=== PATIENT | female | born 1965 | race Caucasian/White ===

== ENCOUNTER 2017-03-09 11:22 | Observation (INO) | payer SELFPAY ==
[~2017-03-09] VITALS: Ht 157.5 cm; Wt 83.0 kg
[~2017-03-09 11:22] MED LIST: AMOXICILLIN500 MG OR
[2017-03-09] MEDS ORDERED: GABAPENTIN400 M2 PO (11:56)
[2017-03-09] MEDS ORDERED: PROMETHAZINE12.5 MG PO (11:58)
[2017-03-09] MEDS ORDERED: DICYCLOMINE20 MG PO (11:59)
[2017-03-09] MEDS ORDERED: SEROQUEL400 M1 (12:00)
[2017-03-09] MEDS ORDERED: BUSPAR30 MG PO (12:00)
[2017-03-09] MEDS ORDERED: PRILOSEC20 MG PO (12:01)
[2017-03-09] MEDS ORDERED: CYMBALTA60 MG PO (12:01)
[2017-03-09] MEDS ORDERED: VISTARIL 50MG C50 M1 PO (12:02)
[2017-03-09] MEDS ORDERED: RANITIDINE300 M1 PO (12:02)
[2017-03-09] MEDS ORDERED: PRAVASTATIN20 MG PO (12:03)
[2017-03-09] MEDS ORDERED: INDERAL10 M1 PO (12:04)
[2017-03-09 12:25] LABS: HEMATOCRIT 41.7 % (37.0-47.0); HEMOGLOBIN 14.1 g/dl (12.0-16.0); IMMATURE GRANULOCYTES 0.5 % (0.0-1.0); MEAN CELL VOLUME 94.6 fL CALC (80.0-100.0); MEAN CORPUSCULAR HGB CONC 33.8 g/L CALC (32.0-36.0); NEUT# 6.11 thou/uL (2.00-7.15); RED BLOOD COUNT 4.41 mill/uL (4.20-5.60); RED CELL DISTRI WIDTH 13.9 % (11.5-15.5)
[2017-03-09 12:36] LABS: ALBUMIN 4.4 g/dL (3.2-5.0); ALKALINE PHOSPHATASE 101 u/l (38-126); ANION GAP 15 (6-22 (CALC)); BILIRUBIN, TOTAL 0.6 mg/dL (0.0-1.4); BUN 12 mg/dL (7-17); BUN/CREATININE RATIO 17 (12-20 (CALC)); CALCIUM 9.6 mg/dL (8.4-10.2); CARBON DIOXIDE 25 mmol/l (22-30); CHLORIDE 104 mmol/l (95-108); CREATININE 0.7 mg/dL (0.5-1.0); ETHYL ALCOHOL 0 mg/dl (0-30); GFR > 60 ML/MIN (>=60 (CALC)); GFR FOR AFR.AMER. > 60 ML/MIN (>=60 (CALC)); GLUCOSE 83 mg/dL (65-105); POTASSIUM 4.7 mmol/l (3.5-5.1); SGOT/AST 92 u/l (14-36); SGPT/ALT 121 u/l (9-52); SODIUM 140 mmol/l (137-146); TOTAL PROTEIN 7.5 g/dL (6.3-8.2)
[2017-03-09 12:49] LABS: MYOGLOBIN 16 ng/mL (0 - 62)
[2017-03-09 14:49] LABS: URINE BILIRUBIN - DIPSTICK NEGATIVE (NEGATIVE); URINE BLOOD DIPSTICK NEGATIVE (NEGATIVE); URINE CLARITY CLEAR; URINE COLOR YELLOW; URINE GLUCOSE - DIPSTICK NEGATIVE (NEGATIVE); URINE KETONE NEGATIVE (NEGATIVE); URINE LEUK ESTERASE NEGATIVE (NEGATIVE); URINE NITRITE - DIPSTICK NEGATIVE (Negative); URINE PROTEIN - DIPSTICK NEGATIVE (NEG-TRACE); URINE SPECIFIC GRAVITY 1.015; URINE UROBILINOGEN - DIPSTICK 0.2 E.U./dL (0.2)
[2017-03-09 14:59] LABS: COCAINE NEGATIVE (NEGATIVE); METHADONE NEGATIVE (NEGATIVE); TETRAHYDROCANNABIONOL NEGATIVE (NEGATIVE)
[2017-03-09 15:00] LABS: BARBITURATES NEGATIVE (NEGATIVE); OXCYCODONE POSITIVE (NEGATIVE); TRICYLIC ANTIDEPRESSANTS POSITIVE (NEGATIVE)
[2017-03-09 17:38] VITALS: BP 140/86
[2017-03-09] MEDS ORDERED: KLONOPIN0.5 MG PO (18:13)
[2017-03-09 19:36] VITALS: BP 134/92
[2017-03-09 20:17] VITALS: BP 134/92
[2017-03-09 23:18] VITALS: BP 136/88
[2017-03-10 04:45] VITALS: BP 130/82
[2017-03-10 06:19] LABS: HEMATOCRIT 39.2 % (37.0-47.0); HEMOGLOBIN 12.8 g/dl (12.0-16.0); IMMATURE GRANULOCYTES 0.5 % (0.0-1.0); MEAN CELL VOLUME 95.4 fL CALC (80.0-100.0); MEAN CORPUSCULAR HGB 31.1 pG CALC (26.0-32.0); MEAN CORPUSCULAR HGB CONC 32.7 g/L CALC (32.0-36.0); NEUT# 3.66 thou/uL (2.00-7.15); RED BLOOD COUNT 4.11 mill/uL (4.20-5.60); RED CELL DISTRI WIDTH 13.8 % (11.5-15.5)
[2017-03-10 06:46] LABS: ANION GAP 13 (6-22 (CALC)); BUN 11 mg/dL (7-17); BUN/CREATININE RATIO 15 (12-20 (CALC)); CALCIUM 9.4 mg/dL (8.4-10.2); CALCULATED LDLCHOLESTEROL 119 mg/dL (62-129 (CALC)); CARBON DIOXIDE 24 mmol/l (22-30); CHLORIDE 109 mmol/l (95-108); CREATININE 0.7 mg/dL (0.5-1.0); GFR > 60 ML/MIN (>=60 (CALC)); GFR FOR AFR.AMER. > 60 ML/MIN (>=60 (CALC)); GLUCOSE 88 mg/dL (65-105); HDL CHOLESTEROL 56 mg/dL (>=40); POTASSIUM 4.3 mmol/l (3.5-5.1); SODIUM 141 mmol/l (137-146); TOTAL CHOLESTEROL 221 mg/dl (0-199); TOTAL TRIGLYCERIDES 225 mg/dl (30-149); VLDL CHOLESTROL 45 mg/dl (2-49 (CALC))
[2017-03-10 09:10] VITALS: BP 110/58
[2017-03-10 11:05] VITALS: BP 119/79
[2017-03-10] MEDS ORDERED: ROPINIROLE HCL0.5 MG PO (11:07)
[2017-03-10] MEDS ORDERED: CLONAZEPAM0.5 M1 PO (11:07)
== END 2017-03-10 14:13 | disposition home or self-care (01) | DRG 313 ==
LOC: ENPENDDIS → ED 11:22 → ED-I 15:05 → ED 16:14 → MS2 16:15
PROVIDERS: Emergency Medicine; ADMIT Internal Medicine; ATTEND Internal Medicine
DX: R07.89 Other chest pain (principal); E78.5 Hyperlipidemia, unspecified; F41.0 Panic disorder [episodic paroxysmal anxiety]; F41.9 Anxiety disorder, unspecified; F31.9 Bipolar disorder, unspecified; K58.9 Irritable bowel syndrome, unspecified; K21.9 Gastro-esophageal reflux disease without esophagitis; F17.210 Nicotine dependence, cigarettes, uncomplicated; R00.0 Tachycardia, unspecified; G25.81 Restless legs syndrome; M79.7 Fibromyalgia; Z91.14 Patient's other noncompliance with medication regimen
CPT/HCPCS: G0378; J2060

== ENCOUNTER 2017-11-28 13:49 | Emergency (ER) | payer SELFPAY ==
[~2017-11-28] VITALS: Ht 157.5 cm; Wt 78.8 kg
[~2017-11-28 13:49] MED LIST changes: +BUSPAR30 MG PO; +CLONAZEPAM0.5 M1 PO; +CYMBALTA60 MG PO; +DICYCLOMINE20 MG PO; +GABAPENTIN400 M2 PO; +INDERAL10 M1 PO; +KLONOPIN0.5 MG PO; +PRAVASTATIN20 MG PO; +PRILOSEC20 MG PO; +PROMETHAZINE12.5 MG PO; +RANITIDINE300 M1 PO; +ROPINIROLE HCL0.5 MG PO; +SEROQUEL400 M1; +VISTARIL 50MG C50 M1 PO
[2017-11-28 16:38] LABS: HEMOGLOBIN 14.8 g/dl (12.0-16.0); IMMATURE GRANULOCYTES 0.5 % (0.0-1.0); MEAN CORPUSCULAR HGB 32.2 pG CALC (26.0-32.0); MEAN CORPUSCULAR HGB CONC 32.9 g/L CALC (32.0-36.0); NEUT# 5.22 thou/uL (2.00-7.15); RED BLOOD COUNT 4.59 mill/uL (4.20-5.60); RED CELL DISTRI WIDTH 13.5 % (11.5-15.5); URINE BILIRUBIN - DIPSTICK NEGATIVE (NEGATIVE); URINE BLOOD DIPSTICK TRACE-INTACT (NEGATIVE); URINE COLOR YELLOW; URINE GLUCOSE - DIPSTICK NEGATIVE (NEGATIVE); URINE KETONE NEGATIVE (NEGATIVE); URINE NITRITE - DIPSTICK NEGATIVE (Negative); URINE PH 5.5 (4.5-8.0); URINE PROTEIN - DIPSTICK NEGATIVE (NEG-TRACE); URINE UROBILINOGEN - DIPSTICK 0.2 E.U./dL (0.2)
[2017-11-28 16:44] LABS: URINE CLARITY CLEAR; URINE LEUK ESTERASE MODERATE (NEGATIVE)
[2017-11-28 16:54] LABS: URINE SQUAMOUS EPITHELIAL CELL FEW EPI/hpf (0-FEW); URINE TRICHOMONAS RARE hpf
[2017-11-28 17:02] LABS: ALBUMIN 4.5 g/dL (3.2-5.0); ALKALINE PHOSPHATASE 110 u/l (38-126); ANION GAP 16 (6-22 (CALC)); BILIRUBIN, TOTAL 0.3 mg/dL (0.0-1.4); BUN 12 mg/dL (7-17); BUN/CREATININE RATIO 16 (12-20 (CALC)); CALCIUM 9.9 mg/dL (8.4-10.2); CARBON DIOXIDE 28 mmol/l (22-30); CHLORIDE 106 mmol/l (95-108); CREATININE 0.7 mg/dL (0.5-1.0); GFR > 60 ML/MIN (>=60 (CALC)); GFR FOR AFR.AMER. > 60 ML/MIN (>=60 (CALC)); GLUCOSE 87 mg/dL (65-105); POTASSIUM 4.7 mmol/l (3.5-5.1); SGOT/AST 28 u/l (14-36); SGPT/ALT 34 u/l (9-52); SODIUM 144 mmol/l (137-146)
[2017-11-28] MEDS ORDERED: CIPROFLOXACN500 MG PO (17:07)
[2017-11-28 17:15] VITALS: BP 121/79
== END 2017-11-28 17:15 | disposition home or self-care (01) | DRG 690 ==
LOC: ED 13:49
PROVIDERS: Emergency Medicine
DX: N39.0 Urinary tract infection, site not specified (principal); B95.1 Streptococcus, group B, as the cause of diseases classified elsewhere; Z20.2 Contact with and (suspected) exposure to infections with a predominantly sexual mode of transmission

== ENCOUNTER 2017-12-28 18:38 | Emergency (ER) | payer SELFPAY ==
[~2017-12-28] VITALS: Ht 157.5 cm; Wt 78.4 kg
[~2017-12-28 18:38] MED LIST changes: +CIPROFLOXACN500 MG PO
[2017-12-28 20:08] LABS: HEMATOCRIT 43.9 % (37.0-47.0); HEMOGLOBIN 14.5 g/dl (12.0-16.0); IMMATURE GRANULOCYTES 0.3 % (0.0-1.0); MEAN CELL VOLUME 96.1 fL CALC (80.0-100.0); MEAN CORPUSCULAR HGB 31.7 pG CALC (26.0-32.0); NEUT# 5.39 thou/uL (2.00-7.15); RED BLOOD COUNT 4.57 mill/uL (4.20-5.60); RED CELL DISTRI WIDTH 13.3 % (11.5-15.5)
[2017-12-28 20:43] LABS: ALBUMIN 4.3 g/dL (3.2-5.0); ALKALINE PHOSPHATASE 114 u/l (38-126); ANION GAP 16 (6-22 (CALC)); BILIRUBIN, TOTAL 0.3 mg/dL (0.0-1.4); BUN 13 mg/dL (7-17); BUN/CREATININE RATIO 18 (12-20 (CALC)); CARBON DIOXIDE 24 mmol/l (22-30); CHLORIDE 109 mmol/l (95-108); CREATININE 0.7 mg/dL (0.5-1.0); GFR > 60 ML/MIN (>=60 (CALC)); GFR FOR AFR.AMER. > 60 ML/MIN (>=60 (CALC)); POTASSIUM 4.2 mmol/l (3.5-5.1); SGOT/AST 29 u/l (14-36); SGPT/ALT 36 u/l (9-52); SODIUM 144 mmol/l (137-146); TOTAL PROTEIN 6.8 g/dL (6.3-8.2)
[2017-12-28 20:52] LABS: ETHYL ALCOHOL 0 mg/dl (0-30)
[2017-12-28 20:56] LABS: URINE BILIRUBIN - DIPSTICK NEGATIVE (NEGATIVE); URINE BLOOD DIPSTICK TRACE-INTACT (NEGATIVE); URINE CLARITY HAZY; URINE COLOR YELLOW; URINE GLUCOSE - DIPSTICK 250 mg/dL (NEGATIVE); URINE KETONE NEGATIVE (NEGATIVE); URINE LEUK ESTERASE NEGATIVE (NEGATIVE); URINE NITRITE - DIPSTICK POSITIVE (Negative); URINE PH 5.5 (4.5-8.0); URINE PROTEIN - DIPSTICK 100 mg/dL (NEG-TRACE); URINE SPECIFIC GRAVITY 1.025; URINE UROBILINOGEN - DIPSTICK 0.2 E.U./dL (0.2)
[2017-12-28 21:09] LABS: COCAINE NEGATIVE (NEGATIVE); URINE BACTERIA MANY hpf; URINE SQUAMOUS EPITHELIAL CELL FEW EPI/hpf (0-FEW)
[2017-12-28 21:10] LABS: BARBITURATES NEGATIVE (NEGATIVE); METHADONE NEGATIVE (NEGATIVE); OXCYCODONE NEGATIVE (NEGATIVE); TETRAHYDROCANNABIONOL NEGATIVE (NEGATIVE); TRICYLIC ANTIDEPRESSANTS NEGATIVE (NEGATIVE)
[2017-12-28 22:06] VITALS: BP 127/81
--- NOTE | 2017-12-31 11:41 | NUR ---
Prescription for Keflex 500 MG PO BID X [address] Obando was called to [facility]. Patient was contacted via phone and left pharmacy phone # in a voice mail.
== END 2017-12-28 22:06 | disposition short-term general hospital (02) | DRG 880 ==
LOC: ED 18:38
PROVIDERS: Emergency Medicine
DX: R45.851 Suicidal ideations (principal); F32.9 Major depressive disorder, single episode, unspecified; F17.210 Nicotine dependence, cigarettes, uncomplicated; F43.0 Acute stress reaction; G47.00 Insomnia, unspecified
CPT/HCPCS: J2060

== ENCOUNTER 2018-04-28 16:24 | Emergency (ER) | payer OTHER ==
[~2018-04-28] VITALS: Ht 157.5 cm; Wt 75.0 kg
[2018-04-28] MEDS ORDERED: TRILEPTAL300 M1 PO (16:51)
[2018-04-28 17:14] LABS: URINE BILIRUBIN - DIPSTICK NEGATIVE (NEGATIVE); URINE BLOOD DIPSTICK NEGATIVE (NEGATIVE); URINE COLOR YELLOW; URINE GLUCOSE - DIPSTICK NEGATIVE (NEGATIVE); URINE KETONE NEGATIVE (NEGATIVE); URINE LEUK ESTERASE TRACE (NEGATIVE); URINE NITRITE - DIPSTICK NEGATIVE (Negative); URINE PH 6.5 (4.5-8.0); URINE PROTEIN - DIPSTICK NEGATIVE (NEG-TRACE); URINE SPECIFIC GRAVITY <=1.005; URINE UROBILINOGEN - DIPSTICK 0.2 E.U./dL (0.2)
[2018-04-28 17:16] LABS: HEMATOCRIT 40.7 % (37.0-47.0); HEMOGLOBIN 13.1 g/dl (12.0-16.0); IMMATURE GRANULOCYTES 0.6 % (0.0-1.0); MEAN CELL VOLUME 98.8 fL CALC (80.0-100.0); MEAN CORPUSCULAR HGB 31.8 pG CALC (26.0-32.0); MEAN CORPUSCULAR HGB CONC 32.2 g/L CALC (32.0-36.0); NEUT# 5.74 thou/uL (2.00-7.15); RED BLOOD COUNT 4.12 mill/uL (4.20-5.60); RED CELL DISTRI WIDTH 13.3 % (11.5-15.5)
[2018-04-28 17:23] LABS: URINE CLARITY CLEAR
[2018-04-28 17:49] LABS: ALBUMIN 3.6 g/dL (3.2-5.0); ALKALINE PHOSPHATASE 93 u/l (38-126); ANION GAP 9 (6-22 (CALC)); BILIRUBIN, TOTAL 0.2 mg/dL (0.0-1.4); BUN 12 mg/dL (7-17); BUN/CREATININE RATIO 18 (12-20 (CALC)); CARBON DIOXIDE 28 mmol/l (22-30); CHLORIDE 107 mmol/l (95-108); CREATININE 0.6 mg/dL (0.5-1.0); GFR > 60 ML/MIN (>=60 (CALC)); GFR FOR AFR.AMER. > 60 ML/MIN (>=60 (CALC)); SGOT/AST 27 u/l (14-36); SGPT/ALT 52 u/l (9-52); SODIUM 140 mmol/l (137-146); TOTAL PROTEIN 6.5 g/dL (6.3-8.2)
[2018-04-28 18:13] VITALS: BP 125/69
[2018-04-28] MEDS ORDERED: METRONIDAZOL250 MG PO (18:14)
[2018-04-28] MEDS ORDERED: METROGEL1 % VA (18:14)
[2018-04-28] MEDS ORDERED: ZITHROMAX250 MG PO (18:14)
== END 2018-04-28 18:25 | disposition home or self-care (01) | DRG 759 ==
LOC: ED 16:24
PROVIDERS: Emergency Medicine
DX: N76.0 Acute vaginitis (principal); R60.0 Localized edema; K58.9 Irritable bowel syndrome, unspecified; F17.210 Nicotine dependence, cigarettes, uncomplicated

== ENCOUNTER 2019-12-25 | Emergency (ER) | payer OTHER ==
[~2019-12-25] MED LIST changes: +METROGEL1 % VA; +METRONIDAZOL250 MG PO; +SEROQUEL100 MG PO; -SEROQUEL400 M1; +TRILEPTAL300 M1 PO; +ZITHROMAX250 MG PO
[2019-12-25] MEDS ORDERED: LORTAB 1010 MG PO (11:03)
== END 2019-12-25 11:25 | disposition home or self-care (01) ==
DX: S63.501A Unspecified sprain of right wrist, initial encounter (principal); F17.200 Nicotine dependence, unspecified, uncomplicated; W54.1XXA Struck by dog, initial encounter

== ENCOUNTER 2019-12-31 13:38 | Observation (INO) | payer OTHER ==
[~2019-12-31] VITALS: Ht 157.5 cm; Wt 84.4 kg
[~2019-12-31 13:38] MED LIST changes: +LORTAB 1010 MG PO
--- NOTE | 2019-12-31 13:58 | NUR ---
PT DECLINED WC, AMBULATED WITH MOTHER TO ROOM
--- NOTE | 2019-12-31 14:46 | NUR ---
PT MEDICATED PER MAR FOR RIGHT HAND PAIN RATING 9 OUT OF 10; MONITORING DEVICES IN PLACE; VSS; PT MOTHER AT BEDSIDE; ADVISED OF POC AND CONTINUED WAIT TIME; VERBALIZES UNDERSTANDING; CALL LIGHT WITHIN REACH; WILL CONTINUE TO MONITOR
[2019-12-31 15:21] LABS: HEMATOCRIT 36.8 % (37.0-47.0); HEMOGLOBIN 11.3 g/dl (12.0-16.0); IMMATURE GRANULOCYTES 0.9 % (0.0-5.0); MEAN CELL VOLUME 100.8 fL CALC (80.0-100.0); MEAN CORPUSCULAR HGB CONC 30.7 g/L CALC (32.0-36.0); NEUT# 6.97 thou/uL (2.00-7.15); RED BLOOD COUNT 3.65 mill/uL (4.20-5.60); RED CELL DISTRI WIDTH 13.2 % (11.5-15.5)
[2019-12-31 15:33] LABS: ALBUMIN 3.7 g/dL (3.2-5.0); ALKALINE PHOSPHATASE 132 u/l (38-126); BUN 12 mg/dL (7-17); BUN/CREATININE RATIO 17 (12-20 (CALC)); CHLORIDE 110 mmol/l (95-108); CREATININE 0.7 mg/dL (0.5-1.0); ETHYL ALCOHOL 0 mg/dl (0-30); GFR > 60 ML/MIN (>=60 (CALC)); GFR FOR AFR.AMER. > 60 ML/MIN (>=60 (CALC)); POTASSIUM 3.6 mmol/l (3.5-5.1); SGOT/AST 17 u/l (14-36); SODIUM 140 mmol/l (137-146); TOTAL PROTEIN 7.1 g/dL (6.3-8.2)
--- NOTE | 2019-12-31 15:40 | NUR ---
PT AMB TO BR WITH SLOW STEADY GAIT FOR UA; MOTHER AT STAND BY; WILL CONTINUE TO MONITOR
[2019-12-31 16:02] LABS: ANION GAP 16 (6-22 (CALC)); BILIRUBIN, TOTAL 0.3 mg/dL (0.0-1.4); CARBON DIOXIDE 18 mmol/l (22-30)
[2019-12-31 16:21] LABS: BARBITURATES NEGATIVE (NEGATIVE); COCAINE NEGATIVE (NEGATIVE); METHADONE NEGATIVE (NEGATIVE); TETRAHYDROCANNABIONOL NEGATIVE (NEGATIVE); TRICYLIC ANTIDEPRESSANTS POSITIVE (NEGATIVE)
[2019-12-31 16:22] LABS: OXCYCODONE NEGATIVE (NEGATIVE)
--- NOTE | 2019-12-31 16:40 | NUR ---
PT RESTING ON STRETCHER WITH EYES CLOSED; PT EASILY AROUSABLE; BEGINS MOANING IN PAIN UPON AWAKENING; STATES THE TOP TO RIGHT HAND HURTS REALLY BAD; RATES PAIN 9 OUT OF 10; PT UPDATED ON POC AND PLAN TO ADMIT; WILL CONTINUE TO MONITOR
--- NOTE | 2019-12-31 16:50 | NUR ---
DR MONTANEZ CONTACTED POISON CONTROL;
[2019-12-31 16:58] LABS: ACT PARTIAL THROMBO TIME 35.3 SECONDS (20.0-32.5); INTERNATIONAL NORMALIZED RATIO 0.8 RATIO (0.7-1.3); PROTHROMBIN TIME 8.9 SECONDS (9.0-12.5)
--- NOTE | 2019-12-31 17:20 | NUR ---
PT MEDICATED WITH ULTRAM PER MAR FOR RIGHT HAND PAIN RATING 9 OUT OF 10; PT ADVISED OF POC AND CONTINUED WAIT TIME; WILL CONTINUE TO MONITOR
--- NOTE | 2019-12-31 18:20 | NUR ---
PT RESTING ON STRETCHER; C/O CONTINUED PAIN TO RIGHT HAND; VSS; WILL CONTINUE TO MONITOR
--- NOTE | 2019-12-31 19:00 | NUR ---
POISON CONTROL CONTACTED TO CLARIFY CONTINUED ORDER FOR ACETADOTE; DR ZEPEDA NOTIFIED NEED OF CONTINUED ORDERS NEEDED; REPORT CALLED TO DOUGLAS SCHROEDER
--- NOTE | 2019-12-31 19:10 | NUR ---
REPORT CALLED TO DOUGLAS SCHROEDER
--- NOTE | 2019-12-31 19:45 | NUR ---
TO FLOOR VIA STRETCHER
[2019-12-31 20:00] VITALS: BP 158/89
--- NOTE | 2019-12-31 23:30 | NUR ---
PATIENT RESTING IN BED AT THIS TIME. IV SITE TO LEFT AC INTACT AND HEALTHY AT THIS TIME. LOADING DOSE OF ACETODOTE 12,900MG IN 200CC OF D5W HUNG ORDERED TO INFUSE OVER 1 HOUR. PATIENT WAS EDUCATED REGUADING THIS CURRENT TREATMENT. PATIENT CONT TO COMPLAIN OF RIGHT HAND PAIN-ENCOURAGED ELEVATION OF RIGHT HAND HAND IS RED SWOLLEN AND WRAM TO TOUCH-APPEARS PAINFUL. TOO EARLY FOR ULTRAM AT THIS TIME. OFFER COLD BACK BUT PATIENT DECLINED WELL.
[2020-01-01 00:05] VITALS: BP 113/73
--- NOTE | 2020-01-01 01:45 | NUR ---
PATIENT RESTING IN BED AT T HIS TIME-#2 BAG OF ACETODOTE [id number] IN 500CC OF D5W HUNG AND INFUSING VIA LEFT AC SITE AT 125CC/HR. SITE REMAINS HEALTHY. PATIENT CONT TO C/O RIGHT HAND PAIN EVEN AFTER BEING MEDICATED WITH ULTRAM 50MG PO FOR 9/10 PAIN ON PAIN SCALE. ENCOURAGED TO KEEP RIGHT HAND ELEVATED ON PILLOWS AND COLD PACK OFFERED BUT PATIENT DECLINES TO USE AT THIS TIME. CALL LIGHT INREACH., WILL CONT TO MONITOR.
[2020-01-01 04:18] VITALS: BP 131/87
[2020-01-01 05:43] LABS: HEMATOCRIT 37.3 % (37.0-47.0); HEMOGLOBIN 11.7 g/dl (12.0-16.0); IMMATURE GRANULOCYTES 0.7 % (0.0-5.0); MEAN CELL VOLUME 98.9 fL CALC (80.0-100.0); MEAN CORPUSCULAR HGB CONC 31.4 g/L CALC (32.0-36.0); NEUT# 9.29 thou/uL (2.00-7.15); RED BLOOD COUNT 3.77 mill/uL (4.20-5.60); RED CELL DISTRI WIDTH 13.2 % (11.5-15.5)
--- NOTE | 2020-01-01 05:45 | NUR ---
PATIENT RESTING IN BED-#3 BAG OF ACETODOTE TREATMENT HUNG ORDERED-8600MG IN 47548SM OF D5W AT 62.5CC/HR VIA LEFT WRIST SITE. SITE REMAINS HEALTHY. MOM AT BEDSIDE. PATIENT ASSISTED TO BR TO VOID. CONT TO HAVE MULTIPLE COMPLAINTS. WANTS SOMETHING STRONGER FOR PAIN. EXPLAINED TO PATIENT THAT THE DOCTOR WILL BE IN TODAY TO REASSESS THE PAIN SITUATION. SAFETY PRECAUTIONS REINFORCED. CALL LIGHT IN REACH. WILL CONT TO MONITOR. .
[2020-01-01 06:21] LABS: ANION GAP 18 (6-22 (CALC)); BUN 9 mg/dL (7-17); BUN/CREATININE RATIO 17 (12-20 (CALC)); CARBON DIOXIDE 16 mmol/l (22-30); CHLORIDE 110 mmol/l (95-108); CREATININE 0.5 mg/dL (0.5-1.0); GFR > 60 ML/MIN (>=60 (CALC)); GFR FOR AFR.AMER. > 60 ML/MIN (>=60 (CALC)); POTASSIUM 3.5 mmol/l (3.5-5.1); SODIUM 140 mmol/l (137-146)
--- NOTE | 2020-01-01 07:23 | NUR ---
NEW IV SITE STARTED TO LEFT WRIST-#22 GAUGE WITH GOOD BLOOD RETURN. IV INFUSION ORDERED VIA THIS NEW SITE. SITE TO LEFT AC WAS D/C'ED WITH CATH INTACT. PATIENT CONT WITH NUMEROUS COMPLAINTS. CALL LIGHT IN REACH. WILL CONT TO MONITOR.
--- NOTE | 2020-01-01 07:46 | NUR ---
PATIENT ARRIVED FROM ER WITH ER STAFF IN ATTENDANCE. AT ASSIST TO THE BED, AWAKE ALERT AND QUITE ANXIOU C/O SEVERE RIGHT HAND PAIN. RIGHT HAND OIS RED AND SWOLLEN. PAINFUL AND HOT TO TOUCH. WAS MEDICATED IN ER FOR PAIN WITH ULTRAM. PATIENT ORIENTED TO ROOM AND SURROUNDINGS. PROVIDED WITH MEAL FOR DINNER WITH JUICE TO DRINK. CALL LIGHT IN REACH. WILL CONT TO MONITOR.
[2020-01-01 07:54] VITALS: BP 139/82
--- NOTE | 2020-01-01 08:00 | NUR ---
PT IS AWAKE, ALERT, ORIENTED X 3. AFFECT IS SOMEWHAT FLAT, BUT SHE INTERACTS WITHOUT DIFFICULTY. LUNGS CLEAR, RA. RIGHT HAND SEEN TO BE SLIGHTLY REDDENED, SWOLLEN. MOTHER IS AT BEDSIDE.
--- NOTE | 2020-01-01 12:00 | NUR ---
PT PROVIDED ICE PACK AND PILLOW FOR ELEVATION OF RIGHT HAND PER PAIN TO SAME. ABX PROVIDED ORDERED.
[2020-01-01 12:21] VITALS: BP 128/55
[2020-01-01] MEDS ORDERED: NEURONTIN600 MG PO (13:59)
[2020-01-01] MEDS ORDERED: ROPINIROLE HCL0.5 MG PO (14:03)
[2020-01-01] MEDS ORDERED: TOPAMAX200 MG PO (14:05)
[2020-01-01] MEDS ORDERED: VIIBRYD20 MG PO (14:22)
[2020-01-01 15:00] VITALS: BP 143/81
--- NOTE | 2020-01-01 18:19 | NUR ---
PT STATES RIGHT HAND SWELLING IS IMPROVED AND SWELLING LESS. PT REMAINS IN NO DISTRESS SHE RESTS IN THE BED.
[2020-01-01 19:33] VITALS: BP 150/76
--- NOTE | 2020-01-01 20:30 | NUR ---
ASSESMENT COMPLETE. PLAN OF CARE REVIEWED. VERBALIZES UNDERSTANDING. DENIES QUESTIONS. DENIES FURTHER NEEDS AT THIS TIME. ENCOURAGED PT TO ELEVATE RUE. PT AGREES. CALL BEASLEY WITHIN REACH, AGREES TO CALL PRN.
[2020-01-01 21:05] LABS: SGOT/AST 13 u/l (14-36)
[2020-01-01 21:07] LABS: PROTHROMBIN TIME 10.5 SECONDS (9.0-12.5)
--- NOTE | 2020-01-01 21:45 | NUR ---
SPOKE W/ MICHELLE TADEO @ POISON CONTROL, REPORTED PT/INR, ALT/AST, AND ACETAMINOPHEN LEVEL. CONFIRMS THAT SHE IS CLEARED BY POISON CONTROL AND NO FURTHER STEPS REQUIRED.
[2020-01-02 00:15] VITALS: BP 112/58
--- NOTE | 2020-01-02 00:30 | NUR ---
PT APPEARS TO BE SLEEPING COMFORTABLY, NO APPARENT DISTRESS. RESP REG AND UNLABORED. CALL BEASLEY REMAINS WITHIN REACH.
--- NOTE | 2020-01-02 04:00 | NUR ---
PT APPEARS TO BE SLEEPING COMFORTABLY, NO APPARENT DISTRESS. RESP REG AND UNLABORED. CALL BEASLEY REMAINS WITHIN REACH.
[2020-01-02 05:28] LABS: HEMOGLOBIN 10.9 g/dl (12.0-16.0); MEAN CORPUSCULAR HGB 31.1 pG CALC (26.0-32.0); MEAN CORPUSCULAR HGB CONC 31.1 g/L CALC (32.0-36.0); RED BLOOD COUNT 3.5 mill/uL (4.20-5.60); RED CELL DISTRI WIDTH 13.2 % (11.5-15.5)
[2020-01-02 05:44] LABS: ALKALINE PHOSPHATASE 99 u/l (38-126); BILIRUBIN, TOTAL 0.3 mg/dL (0.0-1.4); BUN 4 mg/dL (7-17); BUN/CREATININE RATIO 8 (12-20 (CALC)); CHLORIDE 112 mmol/l (95-108); CREATININE 0.6 mg/dL (0.5-1.0); GFR > 60 ML/MIN (>=60 (CALC)); GFR FOR AFR.AMER. > 60 ML/MIN (>=60 (CALC)); POTASSIUM 3.7 mmol/l (3.5-5.1); SGOT/AST 12 u/l (14-36); SODIUM 142 mmol/l (137-146); TOTAL PROTEIN 5.7 g/dL (6.3-8.2)
[2020-01-02 05:46] LABS: ALBUMIN 2.9 g/dL (3.2-5.0); ANION GAP 12 (6-22 (CALC)); CARBON DIOXIDE 22 mmol/l (22-30)
[2020-01-02 08:00] VITALS: BP 125/77
--- NOTE | 2020-01-02 08:00 | NUR ---
PT AWAKE, ALERT, ORIENTED X 3, RESTS IN THE BED IN NO DISTRESS. RIGHT HAND SEEN LESS SWOLLEN TODAY, PINK COLORATION. NO DISTRESS, NO COMPLAINT.
[2020-01-02 10:40] VITALS: BP 125/76
[2020-01-02] MEDS ORDERED: OXYCODONE5 M1 PO (12:55)
[2020-01-02] MEDS ORDERED: DOXYCYCL HYC100 MG PO (12:55)
--- NOTE | 2020-01-02 13:38 | NUR ---
PT HAS BEEN SEEN BY DR CLEMONS AND DISCHARGED TO HOME AT THIS TIME. PT VERBALIZED UNDERSTANDING OF DC INSTRUCTIONS, HAS RECEIVED BACK HER BOTTLE OF PT'S OWN MEDICINES, HAS BEEN TAKEN BY WHEELCHAIR TO FRONT OF HOSPITAL WHERE HER MOTHER IS PICKING HER UP.
== END 2020-01-02 13:38 | disposition home or self-care (01) ==
LOC: ED 13:38 → ED-I 17:40 → ED 17:52 → MS2 17:53
PROVIDERS: Internal Medicine; ADMIT Internal Medicine; ATTEND Internal Medicine
DX: T39.1X1A Poisoning by 4-Aminophenol derivatives, accidental (unintentional), initial encounter (principal); L03.113 Cellulitis of right upper limb; S60.211A Contusion of right wrist, initial encounter; S60.221A Contusion of right hand, initial encounter; S63.501A Unspecified sprain of right wrist, initial encounter; M79.7 Fibromyalgia; F41.9 Anxiety disorder, unspecified; E78.5 Hyperlipidemia, unspecified; W19.XXXA Unspecified fall, initial encounter; Y93.K1 Activity, walking an animal
CPT/HCPCS: G0378

== ENCOUNTER 2020-08-30 16:46 | Observation (INO) | payer MEDICARE, OTHER ==
[~2020-08-30] VITALS: Ht 157.5 cm; Wt 91.8 kg
[~2020-08-30 16:46] MED LIST changes: +DOXYCYCL HYC100 MG PO; +NEURONTIN600 MG PO; +OXYCODONE5 M1 PO; +TOPAMAX200 MG PO; +VIIBRYD20 MG PO
[2020-08-30 17:48] LABS: HEMATOCRIT 41.9 % (37.0-47.0); HEMOGLOBIN 12.9 g/dl (12.0-16.0); IMMATURE GRANULOCYTES 0.6 % (0.0-5.0); MEAN CELL VOLUME 101.9 fL CALC (80.0-100.0); MEAN CORPUSCULAR HGB 31.4 pG CALC (26.0-32.0); MEAN CORPUSCULAR HGB CONC 30.8 g/dL CAL (32.0-36.0); NEUT# 5.36 thou/uL (2.00-7.15); RED BLOOD COUNT 4.11 mill/uL (4.20-5.60); RED CELL DISTRI WIDTH 13.6 % (11.5-15.5)
[2020-08-30] MEDS ORDERED: WELLBUTRIN XL300 MG PO (17:50)
[2020-08-30] MEDS ORDERED: SEROQUEL100 MG PO (17:51)
[2020-08-30] MEDS ORDERED: SEROQUEL25 MG PO (17:52)
[2020-08-30] MEDS ORDERED: KLONOPIN1 MG PO (17:52)
[2020-08-30 18:05] LABS: ALBUMIN 4.4 g/dL (3.2-5.0); ALKALINE PHOSPHATASE 76 u/l (38-126); ANION GAP 16 (6-22 (CALC)); BUN 9 mg/dL (7-17); BUN/CREATININE RATIO 10 (12-20 (CALC)); CARBON DIOXIDE 20 mmol/l (22-30); CHLORIDE 110 mmol/l (95-108); CREATININE 0.9 mg/dL (0.5-1.0); GFR > 60 ML/MIN (>=60 (CALC)); GFR FOR AFR.AMER. > 60 ML/MIN (>=60 (CALC)); SGOT/AST 34 u/l (14-36); SODIUM 142 mmol/l (137-146); TOTAL PROTEIN 7.4 g/dL (6.3-8.2)
[2020-08-30 18:08] LABS: BILIRUBIN, TOTAL 0.5 mg/dL (0.0-1.4)
[2020-08-30 23:00] VITALS: BP 117/73
[2020-08-31 03:00] VITALS: BP 97/43
[2020-08-31 06:20] LABS: CHOLESTEROL HDL RATIO 4.8 (<4.4 (CALC)); MAGNESIUM 1.9 mg/dL (1.6-2.3)
[2020-08-31 07:00] VITALS: BP 99/59
[2020-08-31 09:23] LABS: URINE BILIRUBIN - DIPSTICK NEGATIVE (NEGATIVE); URINE BLOOD DIPSTICK NEGATIVE (NEGATIVE); URINE COLOR YELLOW; URINE GLUCOSE - DIPSTICK NEGATIVE (NEGATIVE); URINE KETONE NEGATIVE (NEGATIVE); URINE LEUK ESTERASE NEGATIVE (NEGATIVE); URINE NITRITE - DIPSTICK NEGATIVE (Negative); URINE PH 5.5 (4.5-8.0); URINE PROTEIN - DIPSTICK NEGATIVE (NEG-TRACE); URINE SPECIFIC GRAVITY 1.025; URINE UROBILINOGEN - DIPSTICK 0.2 E.U./dL (0.2)
[2020-08-31 09:30] VITALS: BP 119/70
== END 2020-08-31 09:46 | disposition home or self-care (01) ==
LOC: ED 16:46 → ED-I 17:18 → ED 20:11 → ICU 20:12
PROVIDERS: Family Medicine; Internal Medicine; ADMIT Internal Medicine; ATTEND Internal Medicine
DX: R07.89 Other chest pain (principal); I49.8 Other specified cardiac arrhythmias; E78.5 Hyperlipidemia, unspecified; F41.0 Panic disorder [episodic paroxysmal anxiety]; F31.9 Bipolar disorder, unspecified; M79.7 Fibromyalgia; E66.9 Obesity, unspecified; Z20.828 Contact with and (suspected) exposure to other viral communicable diseases

== ENCOUNTER 2020-09-21 06:58 | Emergency (ER) | payer MEDICARE, OTHER ==
[~2020-09-21] VITALS: Ht 160 cm; Wt 86.3 kg
[~2020-09-21 06:58] MED LIST changes: +KLONOPIN1 MG PO; +SEROQUEL25 MG PO; +WELLBUTRIN XL300 MG PO
[2020-09-21 07:35] LABS: URINE BLOOD DIPSTICK LARGE (NEGATIVE); URINE COLOR YELLOW; URINE GLUCOSE - DIPSTICK NEGATIVE (NEGATIVE); URINE KETONE NEGATIVE (NEGATIVE); URINE PROTEIN - DIPSTICK 100 mg/dL (NEG-TRACE); URINE SPECIFIC GRAVITY >=1.030
[2020-09-21 07:43] LABS: URINE BACTERIA RARE hpf; URINE BILIRUBIN - DIPSTICK NEGATIVE (NEGATIVE); URINE EPITHELIAL CELLS FEW EPI/hpf (0-FEW); URINE NITRITE - DIPSTICK NEGATIVE (Negative); URINE WBC TNTC WBC/hpf (0-5)
[2020-09-21 07:44] LABS: URINE LEUK ESTERASE LARGE (NEGATIVE)
[2020-09-21 07:56] VITALS: BP 117/83
[2020-09-21] MEDS ORDERED: OMNI-PAC300 MG PO (07:58)
== END 2020-09-21 08:28 | disposition home or self-care (01) ==
LOC: ED 06:58
PROVIDERS: Family Medicine
DX: N39.0 Urinary tract infection, site not specified (principal); E66.9 Obesity, unspecified; F31.9 Bipolar disorder, unspecified; F41.9 Anxiety disorder, unspecified; B96.20 Unspecified Escherichia coli [E. coli] as the cause of diseases classified elsewhere

== ENCOUNTER 2020-09-23 12:46 | Emergency (ER) | payer MEDICARE, OTHER ==
[~2020-09-23] VITALS: Ht 160 cm; Wt 95.0 kg
[~2020-09-23 12:46] MED LIST changes: +OMNI-PAC300 MG PO
[2020-09-23 16:21] VITALS: BP 136/70
[2020-09-23] MEDS ORDERED: HYDROCO/APAP1 TA9 PO (16:32)
== END 2020-09-23 16:37 | disposition home or self-care (01) ==
LOC: ED 12:46
PROC: 2W38X1Z Immobilization of Right Upper Extremity using Splint (ICD-10-PCS; principal; 2020-09-23)
DX: S42.201A Unspecified fracture of upper end of right humerus, initial encounter for closed fracture (principal); F31.9 Bipolar disorder, unspecified; F41.9 Anxiety disorder, unspecified; W01.0XXA Fall on same level from slipping, tripping and stumbling without subsequent striking against object, initial encounter